=== PATIENT | male | born 1950 | race Caucasian/White ===

== ENCOUNTER 2017-03-06 10:13 | Inpatient (IN) | payer OTHER ==
[~2017-03-06] VITALS: Ht 182.9 cm; Wt 109.8 kg
[2017-03-06 10:49] LABS: ABSOLUTE BASOPHIL COUNT 0 /CUMM (0.0-0.2); ABSOLUTE EOSINOPHIL COUNT 0.1 /CUMM (0.0-0.7); ABSOLUTE GRANULOCYTE CT 6.7 /CUMM (1.4-6.5); ABSOLUTE LYMPH COUNT 2.3 /CUMM (1.2-3.4); ABSOLUTE MONOCYTE COUNT 0.8 /CUMM (0.10-0.60); BASOPHIL % 0.5 % (0.0-2.0); GRANULOCYTE % 67.3 % (42.2-75.2); HEMATOCRIT 43.5 % (42-52); MEAN CORPUSCULAR HGB 28.6 PG (27.0-31.0); MEAN CORPUSCULAR HGB CONC 34.1 G/DL (33.0-37.0); MEAN PLATELET VOLUME 8.5 FL (7.4-10.4); PLATELET COUNT 196 /CUMM (130-400); RBC DISTRIBUTION WIDTH 12.7 % (11.5-14.5); RED BLOOD CELL CT 5.17 /CUMM (4.70-6.10); WHITE BLOOD CELL COUNT 9.9 /CUMM (4.8-10.8)
--- NOTE | 2017-03-06 11:38 | ED CARDIAC/CP/PALPITATIONS ---
History of Present Illness General Chief Complaint: General Adult Stated Complaint: ERICA S/P ?MED REACTION Source: patient, family, old records Exam Limitations: no limitations Vital Signs & Intake/Output Vital Signs & Intake/Output Vital Signs Date Time Temp Pulse Resp B/P Pulse O2 O2 Flow FiO2 Ox Delivery Rate 03/06 1315 96.6 30 16 134/63 96 Room Air 03/06 1305 97.4 29 18 125/59 97 Room Air 03/06 1107 33 16 129/58 94 Room Air 03/06 1040 97 03/06 1032 96.4 03/06 1029 39 20 180/85 96 Room Air Allergies Coded Allergies: No Known Allergies (03/06/17) Triage Note: PT C/O DIZZINESS AND LOW HEART RATE X 3 DAYS. STATES HEART RATE HAS BEEN LOW ON AND OFF SINCE STARTING ON TERAZOSIN 1 YEAR AGO. PT DENIES CP/SOB. STATES A LITTLE OUT OF BREATH LAST NIGHT WHEN TRYING TO SLEEP Triage Nurses Notes Reviewed? yes Onset: 1-2 days Duration: day(s):, constant, continues in ED Timing: recent history Quality/Severity: moderate Radiation: no radiation Activities at Onset: activity Prior Chest Pain/Card Workup: no prior cardiac workup Modifying Factors: Improves With: rest. Worsens With: movement. Nitro Today/Relief: no nitro taken today Aspirin Today: no aspirin today Associated Symptoms: dizziness, fatigue, shortness of breath, weakness HPI: 1-2 days prior to admission patient complains of palpitations with slow heart rate weakness dizziness dyspnea on exertion waking with shortness of breath. He denies fever chills nausea vomiting diarrhea abdominal pain chest pain headache dysuria rash bleeding. Past History Travel History Traveled to [place] past 21 day No Medical History Any Pertinent Medical History? see below for history Cardiovascular: hypertension Surgical History Surgical History: non-contributory Psychosocial History What is your primary language Icelandic Tobacco Use: Never used ETOH Use: occasional use Illicit Drug Use: denies illicit drug use Family History Hx Contributory? No Review of Systems Review of Systems Constitutional: Reports: see HPI, weakness. EENTM: Reports: no symptoms. Respiratory: Reports: see HPI, short of breath. Cardiovascular: Reports: no symptoms, palpitations. GI: Reports: no symptoms. Genitourinary: Reports: no symptoms. Musculoskeletal: Reports: no symptoms. Skin: Reports: no symptoms. Neurological/Psychological: Reports: no symptoms. Hematologic/Endocrine: Reports: no symptoms. Immunologic/Allergic: Reports: no symptoms. All Other Systems: Reviewed and Negative Physical Exam Physical Exam General Appearance: well developed/nourished, alert, awake, anxious, moderate distress, obese Head: atraumatic, normal appearance Eyes: Bilateral: normal appearance, PERRL, EOMI. Ears, Nose, Throat: normal pharynx, normal ENT inspection Neck: normal inspection, supple, full range of motion, no midline tenderness Respiratory: normal breath sounds, chest non-tender, no respiratory distress, quiet respiration, lungs clear Cardiovascular: regular rate/rhythm, bradycardia, norml femoral pulses equa Peripheral Pulses: 4+ carotid (R), 4+ carotid (L) Gastrointestinal: normal bowel sounds, soft, non-tender, no organomegaly Back: normal inspection, normal range of motion Extremities: normal inspection, normal capillary refill, normal range of motion, no edema Neurologic/Psych: no motor/sensory deficits, awake, alert, oriented x 3, normal gait, normal mood/affect, manager lpn II-XII nml as tested Reflexes: 2+: bicep (R), bicep (L). Skin: intact, normal color, warm/dry Lymphatic: no anterior cervical yessenia Core Measures ACS in differential dx? Yes Severe Sepsis Present: No Septic Shock Present: No Progress Differential Diagnosis: AMI, atrial fibrillation, pulmonary embolism Plan of Care: Orders Procedure Date/time Status Patient Data 03/06 1448 Active Admit to inpatient 03/06 1439 Active CASE MANAGEMENT CONSULT 03/06 1352 Active Add-on Test (ER Only) 03/06 1156 Active EKG 03/06 1142 Active TSH REFLEX 03/06 1037 Active FREE T4 03/06 1037 Active TROPONIN LEVEL 03/06 1033 Active MAGNESIUM 03/06 1033 Active LYME TITRE 03/06 1033 Active COMPREHENSIVE METABOLIC PANEL 03/06 1033 Active CBC WITHOUT DIFFERENTIAL 03/06 1033 Complete EKG 03/06 1015 Active Laboratory Tests 03/06/17 1037: Anion Gap 10, Estimated GFR > 60, BUN/Creatinine Ratio 25.5 H, Glucose 114 H, Calcium 9.7, Magnesium 1.7, Total Bilirubin 0.7, AST 29, ALT 51, Alkaline Phosphatase 54, Troponin I 0.03, Total Protein 6.3, Albumin 4.2, Globulin 2.1, Albumin/Globulin Ratio 2.0, Free T4 Pending, TSH &T3 &Free T4 Intrp 4.350 H, CBC w Diff NO MAN DIFF REQ, RBC 5.17, MCV 84.0, MCH 28.6, RDW 12.7, MPV 8.5, Gran % 67.3, Lymphocytes % 22.8, Monocytes % 8.4, Eosinophils % 1.0, Basophils % 0.5, Absolute Granulocytes 6.7 H, Absolute Lymphocytes 2.3, Absolute Monocytes 0.8 H, Absolute Eosinophils 0.1, Absolute Basophils 0, PUBS MCHC 34.1 03/06/17 1033: Lyme Disease Antibody Pending Diagnostic Imaging: Viewed by Me: CT Scan. Discussed w/RAD: CT Scan. Radiology Impression: There is no evidence of acute pulmonary embolism. There is a spiculated nodule at the apex of the right lung that measures approximately 0.7 cm and maximal transaxial dimension. Correlation with prior imaging is recommended if available. Otherwise a dedicated CT scan of the chest should be obtained at 3 months to evaluate the stability of this finding based on Fleischner Society recommendations. VTE: negative Initial ED EKG: complete heart block Repeat EKG: unchanged Rhythm Strip: complete heart block Comments: Patient resisted pacemaker placement secondary to monetary concerns. Case management involved and verified his insurance will pay for pacemaker placement. Departure Departure Disposition: STILL A PATIENT Condition: Guarded Clinical Impression Primary Impression: Complete heart block Secondary Impressions: Lung nodule Referrals: PATIENT HAS NO PRIMARY CARE DR (PCP/Family) Departure Forms: Customer Survey General Discharge Information Admission Note Spoke With: Marcie ZHONG MD Documentation of Exam: Documentation of any treatments & extenuating circumstances including Concerns Regarding Discharge (functional status, medication knowledge or non-compliance, living conditions, etc.) that warrant an admission rather than observation: ICU monitoring transcutaneous pacemaker medication adjustment pacemaker placement continuing care discharge planning Critical Care Note Critical Care Note Critical Care Time: 30-74 min (40)
--- NOTE | 2017-03-06 11:53 | CT SCAN REPORT ---
EXAMINATION: CT ANGIOGRAM OF THE CHEST WITH AND WITHOUT CONTRAST (CT PULMONARY ANGIOGRAM FOR PE) CLINICAL INFORMATION: Shortness of breath. Complete heart block. COMPARISON: No relevant prior imaging is available. TECHNIQUE: Prior to contrast administration, noncontrast localization images were obtained. Subsequently, multidetector volumetric imaging was performed from the thoracic inlet to below the diaphragms following the administration of 89 mL Optiray 320 intravenous contrast. No contrast reaction reported. Sagittal, coronal, and MIP oblique sagittal reformatted images were obtained on the CT workstation, uploaded to PACS, and reviewed. Total exam dose-length product 622.21 mGy-cm. FINDINGS: The timing of the contrast bolus injection provides adequate opacification of the pulmonary arterial vasculature. There is no central luminal filling defect to suggest the presence of an acute pulmonary embolism. Of note there is reflux of intravenous contrast into the hepatic veins. There is mild bibasilar subsegmental atelectasis. There is a small fat-containing Bochdalek hernia of the right hemidiaphragm. There is a spiculated nodule at the apex of the right upper lobe best illustrated on axial image 113 of 547 series 2 that measures approximately 0.7 cm in maximal transaxial dimension. There are a few small nonspecific calcified peribronchial and subcarinal granulomas. No pathologically enlarged mediastinal lymph nodes. The trachea and major airways are widely patent. There is no pleural effusion or pneumothorax. The heart size is normal. No pericardial effusion. The aortic arch apex is grossly unremarkable. There is a low-density ovoid nodule involving the lower pole of the right thyroid gland that measures approximately 1.9 cm in maximal transaxial dimension. The visualized portions of the thoracic outlet are otherwise unremarkable. There is no acute osseous finding. Specifically the chest wall is intact with no evidence of acute rib fracture. There are mild multilevel degenerative changes within the thoracic spine. Visualized portions of the upper abdomen reveal no abnormal finding. IMPRESSION: There is no evidence of acute pulmonary embolism. There is a spiculated nodule at the apex of the right lung that measures approximately 0.7 cm and maximal transaxial dimension. Correlation with prior imaging is recommended if available. Otherwise a dedicated CT scan of the chest should be obtained at 3 months to evaluate the stability of this finding based on Fleischner Society recommendations. VTE: negative
--- NOTE | 2017-03-06 13:05 | Cons- Cardiology ---
General Information and HPI Consulting Request Date of Consult: 03/06/17 Requested By: Hussein Gilbert M.D. Reason for Consult: Complete heart block Source of Information: patient, family Exam Limitations: no limitations History of Present Illness: The patient is a 66-year-old man with hypertension. He is on terazosin for this. He has had some dizziness noted with terazosin. However yesterday he had a couple of episodes of more severe dizziness. His relatives took his pulse and found to be very slow in the 30s and convinced him to come to the hospital today. There he was found to have complete heart block with a ventricular rate of about 30 and an atrial rate of about 90. He has interventricular conduction delay with alternating right and left bundle branch block patterns. He apparently has been told of abnormal EKG in the past which by description sounds like it might be be a bundle-branch block. The patient is not having any complaints of chest pain or shortness of breath. He did not have any indio syncopal episodes at this time. Allergies/Medications Allergies: Coded Allergies: No Known Allergies (03/06/17) Home Med List: Hydrocodone/Acetaminophen (Hydrocodon-Acetaminoph 7.5-325) 7.5 MG-325 MG TABLET 1 TAB PO TIDPRN HIP PAIN (Reported) Current Medications: Current Medications Sig/Kelsi Start time Last Medication Dose Route Stop Time Status Admin Acetaminophen 1,000 MG Q6P PRN 03/06 1700 AC IV Acetaminophen/ 1 TAB Q6P PRN 03/07 1430 AC 03/07 Hydrocodone Bitart PO 1443 Acetaminophen/ 1 TAB ONCE ONE 03/06 2330 DC 03/06 Hydrocodone Bitart PO 03/06 2331 2339 Atropine Sulfate 1 MG .STK-MED ONE 03/06 2232 DC IM 03/06 223 Cefazolin Sodium 2 GM ONCE ONE 03/07 2000 CAN N/A 1 UNIT IV 03/07 2029 Cefazolin Sodium 2 GM Q6H 03/07 1400 AC 03/07 N/A 1 UNIT IV 03/07 2029 1348 Diclofenac Sodium 1 BORIS 4 TIMES/DAY PRN 03/06 1700 AC TOP Fentanyl Citrate 100 MCG .STK-MED ONE 03/07 0745 DC IM 03/07 0746 Midazolam HCl 2 MG .STK-MED ONE 03/07 745 DC IM 03/07 0746 Morphine Sulfate 1 MG Q8P PRN 03/06 1715 DC 03/07 IV 1242 Review of Systems Review of Systems: He has chronic pain in his right leg and knee from an old injury which limits his activity. Past History Travel History Traveled to [place] past 21 day No Medical History Cardiovascular: hypertension Surgical History Surgical History: none Psychosocial History ETOH Use: occasional use Illicit Drug Use: denies illicit drug use Exam & Diagnostic Data Vital Signs and I&O Vital Signs Date Time Temp Pulse Resp B/P Pulse O2 O2 Flow FiO2 Ox Delivery Rate 03/06 1107 33 16 129/58 94 Room Air 03/06 1040 97 03/06 1032 96.4 03/06 1029 39 20 180/85 96 Room Air Intake & Output 03/06 1600 03/06 0800 03/06 0000 03/05 1600 03/05 0000 Intake Total 0 Output Total Balance 0 Intake, Oral 0 Patient 242 lb Weight Physical Exam: The patient is a well-developed mildly obese middle aged white male in no acute distress HEENT exam is normal Chest is clear Heart reveals soft heart sounds and marked bradycardia. There are no murmurs Abdomen is benign Extremities reveal good pulses and no edema Labs/Ruperto Results: Laboratory Tests 03/06 03/06 1037 1033 Chemistry Sodium (137 - 145 mmol/L) 137 Potassium (3.5 - 5.1 mmol/L) 4.6 Chloride (98 - 107 mmol/L) 105 Carbon Dioxide (22 - 30 mmol/L) 23 Anion Gap (5 - 16) 10 BUN (9 - 20 mg/dL) 28 H Creatinine (0.7 - 1.2 mg/dL) 1.1 Estimated GFR (>60 ml/min) > 60 BUN/Creatinine Ratio (7 - 25 %) 25.5 H Glucose (65 - 99 mg/dL) 114 H Calcium (8.4 - 10.2 mg/dL) 9.7 Magnesium (1.6 - 2.3 mg/dL) 1.7 Total Bilirubin (0.2 - 1.3 mg/dL) 0.7 AST (17 - 59 U/L) 29 ALT (21 - 72 U/L) 51 Alkaline Phosphatase (< 127 U/L) 54 Troponin I (<0.11 ng/ml) 0.03 Total Protein (6.3 - 8.2 g/dL) 6.3 Albumin (3.5 - 5.0 g/dL) 4.2 Globulin (1.9 - 4.2 gm/dL) 2.1 Albumin/Globulin Ratio (1.1 - 2.2 %) 2.0 TSH &T3 &Free T4 Intrp (0.27 - 4.20 uIU/mL) Pending Hematology CBC w Diff NO MAN DIFF REQ WBC (4.8 - 10.8 /CUMM) 9.9 RBC (4.70 - 6.10 /CUMM) 5.17 Hgb (14.0 - 18.0 G/DL) 14.8 Hct (42 - 52 %) 43.5 MCV (80.0 - 94.0 FL) 84.0 MCH (27.0 - 31.0 PG) 28.6 RDW (11.5 - 14.5 %) 12.7 Plt Count (130 - 400 /CUMM) 196 MPV (7.4 - 10.4 FL) 8.5 Gran % (42.2 - 75.2 %) 67.3 Lymphocytes % (20.5 - 51.1 %) 22.8 Monocytes % (1.7 - 9.3 %) 8.4 Eosinophils % (0 - 5 %) 1.0 Basophils % (0.0 - 2.0 %) 0.5 Absolute Granulocytes (1.4 - 6.5 /CUMM) 6.7 H Absolute Lymphocytes (1.2 - 3.4 /CUMM) 2.3 Absolute Monocytes (0.10 - 0.60 /CUMM) 0.8 H Absolute Eosinophils (0.0 - 0.7 /CUMM) 0.1 Absolute Basophils (0.0 - 0.2 /CUMM) 0 PUBS MCHC (33.0 - 37.0 G/DL) 34.1 Serology Lyme Disease Antibody Pending Diagnostic Data EKG Results Initial EKG shows sinus rhythm a rate of about 90 with complete heart block. There is a ventricular escape rhythm at a rate of 30 with right bundle branch block and left axis deviation pattern. Repeat EKG at 11:46 AM shows sinus rhythm with complete heart block and now a left bundle branch block pattern. The ventricular rate is 32. Other Results IMPRESSION: There is no evidence of acute pulmonary embolism. There is a spiculated nodule at the apex of the right lung that measures approximately 0.7 cm and maximal transaxial dimension. Correlation with prior imaging is recommended if available. Otherwise a dedicated CT scan of the chest should be obtained at 3 months to evaluate the stability of this finding based on Fleischner Society recommendations. VTE: negative DICTATED BY: DONNY APARICIO MD DATE/TIME DICTATED:03/06/171140 ROSIN BARREL FILLER:HARRISON DATE/TIME TRANSCRIBED:03/06/171140 Assessment/Plan Assessment/Plan This patient is a 66-year-old man presents with mildly symptomatic complete heart block. His heart rate is in the low30s. He has alternating bundle type ventricular escape rhythm. Most likely this is degeneration of the conduction system. It sounds like he might have had a previous bundle branch block pattern just from his history, although we don't have any documentation at this time. The patient will require pacemaker on a semiurgent basis. We will plan this in the near future, hopefully tomorrow morning depending on scheduling. The patient is agreeable pending clearance from his insurance company etc. Unfortunately we will not be able to clear him to travel to have this done back in his home [facility] because of his clinical condition. He should be able to travel a couple of days after the procedure. Consult Acknowledgment - Thank you for your consult request.
--- NOTE | 2017-03-06 15:29 | History & Physical ---
See Addendum TYRONE SRIVASTAVA,ZANA 03/06/17 1529: General Information and HPI MD Statement: I have seen and personally examined JOSE EDUARDO ALONZO and documented this H&P. The patient is a 66 year old M who presented with a patient stated chief complaint of [dizziness]. Source of Information: patient, family Exam Limitations: no limitations History of Present Illness: Patient is a 66 year old gentleman with PMH of hypertension, chronic back pain ( due to herniated disc), chronic right knee pain (with meniscal tear), came to the ED due to dizziness and after he was found to have heart rate in 30s (by her sister who is a retired nurse). Patient is visiting his sister from the [facility]. He reports that his symptoms started about 2 days ago with dizziness that occurs when he sits up from supine to upright position or when he stands up. Denies loss of consciousness, denies palpitation or chest pain, denies headache. Patient reports SOB when lying flat. He mentions that he has been experiencing dizziness since about a year ago when he was started on terazosin for high blood pressure. Patient reports a recent seven-day course of amoxicillin for a dental abscess which was given by his dentist in anticipation of tooth extraction. He also mentioned that he is about to get an MRI for his back and requests that the pacemaker that is palnned to be placed be MRI compatible He denies fever, chills, but reports his temperature today is more than his usual, states that it is usually 95.6-96.8 but was 97.4 today. denies abdominal pain, changes in has not had any sick contacts, no travels outside the [place] for several years Allergies/Medications Allergies: Coded Allergies: No Known Allergies (03/06/17) Home Med list Hydrocodone/Acetaminophen (Hydrocodon-Acetaminoph 7.5-325) 7.5 MG-325 MG TABLET 1 TAB PO TIDPRN HIP PAIN (Reported) Past History Travel History Traveled to [place] past 21 day No Medical History Cardiovascular: hypertension Musculoskeletal: chronic back pain, mensical tear, chronic knee pain Surgical History Surgical History: non-contributory Past Family/Social History Family History Relations & Conditions if any SISTER Relation not specified for: FH: diabetes mellitus Psychosocial History Smoking Status: Former Smoker (no smoking since ) ETOH Use: occasional use Illicit Drug Use: denies illicit drug use Functional Ability Ambulation: independent Review of Systems Review of Systems Constitutional: Denies: chills, fever, weakness. EENTM: Reports: no symptoms. Cardiovascular: Denies: chest pain, palpitations, peripheral edema, syncope. Respiratory: Reports: short of breath (when lying flat). Denies: cough, orthopnea, sputum production. GI: Reports: no symptoms. Genitourinary: Reports: no symptoms. Musculoskeletal: Reports: back pain (lower back), joint pain (knee pain). Skin: Reports: lumps (back of neck, chronic, stable). Neurological/Psychological: Reports: no symptoms. Hematologic/Endocrine: Reports: no symptoms. Immunologic/Allergic: Reports: no symptoms. Exam & Diagnostic Data Last 24 Hrs of Vital Signs/I&O Vital Signs Date Time Temp Pulse Resp B/P Pulse O2 O2 Flow FiO2 Ox Delivery Rate 03/07 0400 97 Room Air 03/07 0000 95 Room Air 03/07 0000 97.5 30 20 110/70 95 Room Air 03/06 1900 96.7 34 16 149/90 97 Room Air 03/06 1624 96.9 33 18 149/70 96 Room Air 03/06 1315 96.6 30 16 134/63 96 Room Air 03/06 1305 97.4 29 18 125/59 97 Room Air 03/06 1107 33 16 129/58 94 Room Air 03/06 1040 97 03/06 1032 96.4 03/06 1029 39 20 180/85 96 Room Air Intake & Output 03/07 1600 03/07 0800 03/07 0000 Intake Total 120 Output Total 600 500 Balance -600 -380 Intake, Oral 120 Output, Urine 600 500 Patient 109.769 kg Weight Physical Exam General Appearance Alert, Oriented X3, Cooperative, No Acute Distress Skin there is a soft mass like lesion, 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 moist/pink, pupil round and reactive to light Neck Supple, No JVD Cardiovascular Normal S1, Normal S2, No Murmurs, bradycardic, irregular Lungs Clear to Auscultation, Normal Air Movement Abdomen Soft, No Tenderness Diagnostic Data EKG Results Initial EKG shows sinus rhythm a rate of about 90 with complete heart block. There is a ventricular escape rhythm at a rate of 30 with right bundle branch block and left axis deviation pattern. Repeat EKG at 11:46 AM shows sinus rhythm with complete heart block and now a left bundle branch block pattern. The ventricular rate is 32. Other Results IMPRESSION: There is no evidence of acute pulmonary embolism. There is a spiculated nodule at the apex of the right lung that measures approximately 0.7 cm and maximal transaxial dimension. Correlation with prior imaging is recommended if available. Otherwise a dedicated CT scan of the chest should be obtained at 3 months to evaluate the stability of this finding based on Fleischner Society recommendations. VTE: negative DICTATED BY: DONNY APARICIO MD DATE/TIME DICTATED:03/06/171140 PUBLIC RECORDS OFFICER:HARRISON DATE/TIME TRANSCRIBED:03/06/171140 Assessment/Plan Assessment: Patient is a 66-year-old gentleman with PMH of hypertension, chronic knee pain, chronic back pain who came to the ED after 2 days of feeling dizzy. He was found to have bradycardia, EKG in the ED revealed complete heart block. Problem list and plan: Symptomatic Bradycardia and complete heart block First dizziness when moving from supine to upright and standing up. Denies headache, chest pain, palpitation, shortness of breath. Possibility etiologies include: myocardial ischemia involving the conduction system (acute or chronic), cardiomyopathy (amyloidosis, sarcoidosis), myocarditis (lyme disease, chagas disease), endocarditis with abscess formation, hyperkalemia, medication-related (AV myron blocking medications) EKG: Rate of 32, ND 233, 3rd degree AV block Troponin negativex2 CTA: The heart size is normal. No pericardial effusion. * Admitted to the ICU * atropine and defibrillator at bedside * Cardiology consult with Dr. Tan has been obtained, as per recommendations patient will be scheduled for pacemaker placement as early in the morning tomorrow. History of hypertension Patient takes terazosin, currently on hold due to the possibility that it may have caused the Chronic back pain and knee pain Patient takes hydrocodone/acetaminophen home which can not be given due to risk of worsening bradycardia * Pain management with acetaminophen, ketorolac and morphine Accidental finding of a lung nodule Asymptomatic. CTA was done in the ED and showed a spiculated nodule at the apex of the right lung that measures approximately 0.7 cm and maximal transaxial dimension. CT scan of the chest should be obtained at 3 months to evaluate the stability of this finding. Diet NPO DVT px ALPS, in anticipation for sx tomorrow FULL CODE As Ranked By This Provider Problem List: 1. Complete heart block 2. HTN (hypertension) 3. Lung nodule Core Measures/Miscellaneous Acute Coronary Syndrome ACS Diagnosis: No Cerebrovascular Accident CVA/TIA Diagnosis: No Congestive Heart Failure CHF Diagnosis: No Venous Thromboembolism VTE Risk Factors: Acute medical illness, Age > 40 No [facility] VTE prophylaxis d/t: No contraindications No VTE Pharm Prophylaxis d/t: No contraindications (pacemaker placement tomorrow ), Surgical contraindication VTE Diagnosis: No VTE Type: NONE VTE Confirmed by (Test): NONE Severe Sepsis Severe Sepsis Present: No Septic Shock Septic Shock Present: No Miscellaneous Documentation Attending Case Discussed With: Marcie ZHONG MD Primary Care Physician: PATIENT HAS NO PRIMARY CARE DR Patient sees these Specialists none Level of Patient Care: Critical Care (CRI) FABIEN MARTINEZ 03/06/17 1612: Resident Review Statement Resident Statement: examined this patient, discussed with marketing intern, agreed with marketing intern Other Findings: Patient is a 66-year-old gentleman with past medical history significant for chronic back pain due to L3 radiculopathy, history of hypertension, BPH presented to the ED for the evaluation of persistent dizziness with bradycardia for the last 1 day. Patient mentioned that he has been feeling dizzy since yesterday, more on standing from a sitting position or sitting from a lying position. Associated with shortness of breath without any chest discomfort or palpitations. Denied any lightheadedness or loss of consciousness numbness and tingling. Her sister who was a retired nurse checked his vitals and and was found to be bradycardic heart rate was in 30s, patient could not sleep overnight and came to the ER in the morning for further evaluation. Patient reported that he has been taking prazosin for his blood pressure and BPH for almost a year ago, and had noticed dizzy episodes with the medication. About 2-1/2 months ago he was also started on Niacin by his primary care physician. Patient had last physical exam in 2016 EKG done at that time was abnorma(possible conduction system abnormalities patient did not know the exact details ) Patient denied any recent infections fever or chills/rash. He recently completed a course of amoxicillin for total of 7 days given by his dentist before dental extraction. In the ED, EKG done in the ED sinus rhythm showed complete heart block with a heart rate in 30s. Patient was given 1 time dose of IV atropine 1 mg. Vitals on admission temperature 96.7, pulse 39, respiratory rate 20, blood pressure 180/85 on room air General Appearance: Alert, No Acute Distress Skin: Grossly normal HEENT: PEERLA Neck: Supple, No JVD Cardiovascular: Low pitched/soft heart sounds with significant bradycardia pulse in 30s. Lungs: Clear to Auscultation, Normal Air Movement Abdomen: Normal Bowel Sounds, Soft, No Tenderness Neurological: Normal Speech, Strength at 5/5 X4 Ext, Cranial Nerves 3-12 NL, Reflexes 2+ Extremities: No Clubbing, No Cyanosis, No Edema Vascular: Normal Pulses. Pertinent labs on admission: WBC count normal H&H stable 14.8/43, normal BMP, TSH 4.3. CTA chest was negative for pulmonary embolism EKG done in the ED sinus rhythm showed complete heart block with a heart rate in 30s. Assessment : This is a 66-year-old gentleman with past medical history significant for chronic back pain due to L3 radiculopathy, history of hypertension, BPH presented to the ED for the evaluation of persistent dizziness with bradycardia for the last 1 day, has been admitted for the evaluation for complete heart block. Plan: 1.Dizziness and persistent bradycardia heart rate in 30s with a complete heart block( Ideologies include conduction system abnormality-ischemic, cardiomyopathy, myocarditis-Lyme's disease?,endocarditis less likely, AV myron blocking medications: * Patient has been admitted to critical care unit for further evaluation. * Patient has been given 1 time dose of atropine in the ER , will keep atropine at the bedside with the pacer pads on . * Cardiology consult with Dr. Tan has been obtained, as per recommendations patient will be scheduled for pacemaker placement as early in the morning tomorrow. * Will do echocardiogram and do another set of troponin and EKG to rule out any underlying ACS. * Lyme's titers pending. * Hold prazosin and niacin. * Continuous telemetry monitoring * Watch for any hemodynamically stability. 2.DVT prophylaxis Alps:(hold any anticoagulation pending pacemaker placement tomorrow). 3. Mild to moderate pain controlled with IV Tylenol, severe pain controlled with IV morphine 4. Heart healthy diet. We'll keep the patient nothing by mouth from midnight in anticipation for pacemaker placement 5. Patient is full code. Case discussed with Dr. Zhong
[2017-03-06] MEDS ORDERED: HYDROCODON-ACE1 EAC3 PO (19:15)
--- NOTE | 2017-03-06 20:39 | Cons- Cardiology ---
General Information and HPI Consulting Request Date of Consult: 03/06/17 Requested By: Marcie ZHONG MD Reason for Consult: Dyspnea with complete heart block Source of Information: patient, family History of Present Illness: 66 year old male with no known cardiac history who [facility]. History of HTN on Terazocin. Patient comes to the ER today with worsening positional dizziness without LOC and dyspnea. Per the patient's family he also was waking at night "gasping" for air. In the ER, the patient is noted to be in complete heart block with an atrial rate of 90 and a ventricular rate of about 30. He was also noted to have varying escape rhythm with brief episodes of narrow complex rhythm but also episodes of alternating RBBB and LBBB. Discussed at length with the patient. I believe this is most consistent with degenerative conduction disease. THe patient is concerned that it is related to his medicaitions but this is decidedly unlikely. He denies any other cardiac symptoms Allergies/Medications Allergies: Coded Allergies: No Known Allergies (03/06/17) Home Med List: Hydrocodone/Acetaminophen (Hydrocodon-Acetaminoph 7.5-325) 7.5 MG-325 MG TABLET 1 TAB PO TIDPRN HIP PAIN (Reported) Current Medications: Current Medications Sig/Kelsi Start time Last Medication Dose Route Stop Time Status Admin Acetaminophen 1,000 MG Q6P PRN 03/06 1700 AC IV Atropine Sulfate 1 MG ONCE ONE 03/06 1045 DC 03/06 IV 03/06 1046 1051 Diclofenac Sodium 1 BORIS 4 TIMES/DAY PRN 03/06 1700 AC TOP Enoxaparin Sodium 40 MG DAILY 03/07 1000 CAN SC Ketorolac 30 MG Q6P PRN 03/06 1700 DC Tromethamine IV 03/11 1659 Morphine Sulfate 1 MG Q8P PRN 03/06 1715 AC IV Past History Travel History Traveled to [place] past 21 day No Medical History Cardiovascular: hypertension Surgical History Surgical History: non-contributory Psychosocial History ETOH Use: occasional use Illicit Drug Use: denies illicit drug use Exam & Diagnostic Data Vital Signs and I&O Vital Signs Date Time Temp Pulse Resp B/P Pulse O2 O2 Flow FiO2 Ox Delivery Rate 03/06 1900 96.7 34 16 149/90 97 Room Air 03/06 1624 96.9 33 18 149/70 96 Room Air 03/06 1315 96.6 30 16 134/63 96 Room Air 03/06 1305 97.4 29 18 125/59 97 Room Air 03/06 1107 33 16 129/58 94 Room Air 03/06 1040 97 03/06 1032 96.4 03/06 1029 39 20 180/85 96 Room Air Intake & Output 03/06 1600 03/06 0800 03/06 0000 03/05 1600 03/05 0800 03/05 0000 Intake Total 0 Output Total Balance 0 Intake, Oral 0 Patient 242 lb Weight Physical Exam: General: Alert, No Acute Distress Skin: Grossly normal HEENT: Normal Neck: Supple, SLight JVP elevation with huang A waves Cardiovascular: Low pitched/soft heart sounds with significant bradycardia pulse in 30s. 1/6 systolic murmur Lungs: Clear to Auscultation, Normal Air Movement Abdomen: Normal Bowel Sounds, Soft, No Tenderness Neurological: Normal Speech, Strength at 5/5 X4 Ext, Cranial Nerves 3-12 NL, Reflexes 2+ Extremities: No Clubbing, No Cyanosis, No Edema Vascular: Normal Pulses bilaterally Labs/Ruperto Results: Laboratory Tests 03/06 03/06 03/06 1657 1037 1033 Chemistry Sodium (137 - 145 mmol/L) 137 Potassium (3.5 - 5.1 mmol/L) 4.6 Chloride (98 - 107 mmol/L) 105 Carbon Dioxide (22 - 30 mmol/L) 23 Anion Gap (5 - 16) 10 BUN (9 - 20 mg/dL) 28 H Creatinine (0.7 - 1.2 mg/dL) 1.1 Estimated GFR (>60 ml/min) > 60 BUN/Creatinine Ratio (7 - 25 %) 25.5 H Glucose (65 - 99 mg/dL) 114 H Calcium (8.4 - 10.2 mg/dL) 9.7 Magnesium (1.6 - 2.3 mg/dL) 1.7 Total Bilirubin (0.2 - 1.3 mg/dL) 0.7 AST (17 - 59 U/L) 29 ALT (21 - 72 U/L) 51 Alkaline Phosphatase (< 127 U/L) 54 Troponin I (<0.11 ng/ml) 0.03 0.03 Total Protein (6.3 - 8.2 g/dL) 6.3 Albumin (3.5 - 5.0 g/dL) 4.2 Globulin (1.9 - 4.2 gm/dL) 2.1 Albumin/Globulin Ratio (1.1 - 2.2 %) 2.0 Free T4 (0.78 - 2.44 ng/dL) 1.18 Total T3 (0.97 - 1.69 ng/mL) 1.43 TSH &T3 &Free T4 Intrp (0.27 - 4.20 uIU/mL) 4.350 H Hematology CBC w Diff NO MAN DIFF REQ WBC (4.8 - 10.8 /CUMM) 9.9 RBC (4.70 - 6.10 /CUMM) 5.17 Hgb (14.0 - 18.0 G/DL) 14.8 Hct (42 - 52 %) 43.5 MCV (80.0 - 94.0 FL) 84.0 MCH (27.0 - 31.0 PG) 28.6 RDW (11.5 - 14.5 %) 12.7 Plt Count (130 - 400 /CUMM) 196 MPV (7.4 - 10.4 FL) 8.5 Gran % (42.2 - 75.2 %) 67.3 Lymphocytes % (20.5 - 51.1 %) 22.8 Monocytes % (1.7 - 9.3 %) 8.4 Eosinophils % (0 - 5 %) 1.0 Basophils % (0.0 - 2.0 %) 0.5 Absolute Granulocytes (1.4 - 6.5 /CUMM) 6.7 H Absolute Lymphocytes (1.2 - 3.4 /CUMM) 2.3 Absolute Monocytes (0.10 - 0.60 /CUMM) 0.8 H Absolute Eosinophils (0.0 - 0.7 /CUMM) 0.1 Absolute Basophils (0.0 - 0.2 /CUMM) 0 PUBS MCHC (33.0 - 37.0 G/DL) 34.1 Serology Lyme Disease Antibody Pending Diagnostic Data EKG Results Complete heart block Assessment/Plan Assessment/Plan Assessment: 1. Complete heart block - Most likely related to underlying conduction disease. Not likely related to medications. Lyme disease also unlikely but titres pending. 2. Dyspnea, etc likely related to CHB 3. HTN 4. Chronic Pain Recommendations: - Admit to ICU for monitoring. - Atropine at the bedside and external pacemaker in place. - Full labs including TSH, Troponins, Lyme, etc - Echocardiogram to rule out structural disease. - Dr. Tan consulted for placement of permanent pacemaker; scheduled for 7: 30 AM tomorrow. - NPO tonite after midnite. - Pain control - The patient is scheduled for multiple upcoming MRIs. An MRI safe PPM should be implanted in his case. Consult Acknowledgment - Thank you for your consult request.
[2017-03-07] VITALS: BP 110/70
--- NOTE | 2017-03-07 07:29 | PN- Resident CRCU ---
Subjective HPI/CRCU Issues: 1- bradycardia and dizziness with 3rd degree AVB on EKG, due for pacemaker placement this am 2- History of HTN on Terazosin 24 Hour Events: Laboratory Tests 03/07 03/06 03/06 0430 1657 1037 Chemistry Sodium (137 - 145 mmol/L) 138 137 Potassium (3.5 - 5.1 mmol/L) 4.7 4.6 Chloride (98 - 107 mmol/L) 107 105 Carbon Dioxide (22 - 30 mmol/L) 21 L 23 Anion Gap (5 - 16) 11 10 BUN (9 - 20 mg/dL) 25 H 28 H Creatinine (0.7 - 1.2 mg/dL) 0.9 1.1 Estimated GFR (>60 ml/min) > 60 > 60 BUN/Creatinine Ratio (7 - 25 %) 25.5 H Glucose (65 - 99 mg/dL) 104 H 114 H Calcium (8.4 - 10.2 mg/dL) 9.2 9.7 Phosphorus (2.5 - 4.5 mg/dL) 3.0 Magnesium (1.6 - 2.3 mg/dL) 1.8 1.7 Total Bilirubin (0.2 - 1.3 mg/dL) 0.8 0.7 AST (17 - 59 U/L) 39 29 ALT (21 - 72 U/L) 64 51 Alkaline Phosphatase (< 127 U/L) 54 Troponin I (<0.11 ng/ml) 0.03 0.03 Total Protein (6.3 - 8.2 g/dL) 6.3 Albumin (3.5 - 5.0 g/dL) 4.1 4.2 Globulin (1.9 - 4.2 gm/dL) 2.1 Albumin/Globulin Ratio (1.1 - 2.2 %) 2.0 Free T4 (0.78 - 2.44 ng/dL) 1.18 Total T3 (0.97 - 1.69 ng/mL) 1.43 TSH &T3 &Free T4 Intrp (0.27 - 4.20 uIU/mL) 4.350 H Hematology CBC w Diff NO MAN DIFF REQ WBC (4.8 - 10.8 /CUMM) 9.9 RBC (4.70 - 6.10 /CUMM) 5.17 Hgb (14.0 - 18.0 G/DL) 14.8 Hct (42 - 52 %) 43.5 MCV (80.0 - 94.0 FL) 84.0 MCH (27.0 - 31.0 PG) 28.6 RDW (11.5 - 14.5 %) 12.7 Plt Count (130 - 400 /CUMM) 196 MPV (7.4 - 10.4 FL) 8.5 Gran % (42.2 - 75.2 %) 67.3 Lymphocytes % (20.5 - 51.1 %) 22.8 Monocytes % (1.7 - 9.3 %) 8.4 Eosinophils % (0 - 5 %) 1.0 Basophils % (0.0 - 2.0 %) 0.5 Absolute Granulocytes (1.4 - 6.5 /CUMM) 6.7 H Absolute Lymphocytes (1.2 - 3.4 /CUMM) 2.3 Absolute Monocytes (0.10 - 0.60 /CUMM) 0.8 H Absolute Eosinophils (0.0 - 0.7 /CUMM) 0.1 Absolute Basophils (0.0 - 0.2 /CUMM) 0 PUBS MCHC (33.0 - 37.0 G/DL) 34.1 03/06 1033 Serology Lyme Disease Antibody Pending Vital Signs Date Time Temp Pulse Resp B/P Pulse O2 O2 Flow FiO2 Ox Delivery Rate 03/07 0400 97 Room Air 03/07 0000 95 Room Air 03/07 0000 97.5 30 20 110/70 95 Room Air 03/06 1900 96.7 34 16 149/90 97 Room Air 03/06 1624 96.9 33 18 149/70 96 Room Air 03/06 1315 96.6 30 16 134/63 96 Room Air 03/06 1305 97.4 29 18 125/59 97 Room Air 03/06 1107 33 16 129/58 94 Room Air 03/06 1040 97 03/06 1032 96.4 03/06 1029 39 20 180/85 96 Room Air Intake & Output 03/07 1600 03/07 0800 03/07 0000 Intake Total 120 Output Total 600 500 Balance -600 -380 Intake, Oral 120 Output, Urine 600 500 Patient 109.769 kg Weight Objective Vital Signs & I&O Last 8 Hrs of Vitals and I&O: HR 28-32, complete heart block no overnight events Exam General Appearance: well developed/nourished, no apparent distress, alert, awake , comfortable, obese Head: atraumatic, normal appearance Neck: normal inspection, supple, full range of motion, soft tissue mass present from the past on the lower part and back of the neck Respiratory: normal breath sounds, chest non-tender, no respiratory distress, quiet respiration, lungs clear Cardiovascular: edema (irregular, bradycardic) Gastrointestinal: normal bowel sounds, soft, non-tender Extremities: normal inspection, normal capillary refill Cranial Nerves: normal hearing, normal speech, PERRL Skin: intact, normal color Back: normal inspection, decreased range of motion Current Medications: Current Medications Sig/Kelsi Start time Last Medication Dose Route Stop Time Status Admin Acetaminophen 1,000 MG Q6P PRN 03/06 1700 AC IV Acetaminophen/ 1 TAB Q6P PRN 03/07 1430 AC 03/07 Hydrocodone Bitart PO 1843 Acetaminophen/ 1 TAB ONCE ONE 03/06 2330 DC 03/06 Hydrocodone Bitart PO 03/06 2331 2339 Atropine Sulfate 1 MG .STK-MED ONE 03/06 2232 DC IM 03/06 2233 Cefazolin Sodium 2 GM ONCE ONE 03/07 2000 CAN N/A 1 UNIT IV 03/07 2029 Cefazolin Sodium 2 GM Q6H 03/07 1400 AC 03/07 N/A 1 UNIT IV 03/07 202 1945 Diclofenac Sodium 1 BORIS 4 TIMES/DAY PRN 03/06 1700 AC TOP Fentanyl Citrate 100 MCG .STK-MED ONE 03/07 0745 DC IM 03/07 0746 Hydromorphone HCl 2 MG .STK-MED ONE 03/07 0956 DC IM 03/07 0957 Midazolam HCl 2 MG .STK-MED ONE 03/07 0745 DC IM 03/07 0746 Morphine Sulfate 1 MG Q8P PRN 03/06 1715 DC 03/07 IV 1242 Impression/Plan Impression/Problem List Impression: Patient is a 66-year-old gentleman with PMH of hypertension, chronic knee pain, chronic back pain who came to the ED after 2 days of feeling dizzy. He was found to have bradycardia, EKG in the ED revealed complete heart block. Patient is taken to the OR today for pacemaker placement. Problem list and plan: Symptomatic Bradycardia and complete heart block First dizziness when moving from supine to upright and standing up. Denies headache, chest pain, palpitation, shortness of breath. Possibility etiologies include: myocardial ischemia involving the conduction system (acute or chronic), cardiomyopathy (amyloidosis, sarcoidosis), myocarditis (lyme disease, chagas disease), endocarditis with abscess formation, hyperkalemia, medication-related (AV myron blocking medications) EKG: Rate of 32, UT 233, 3rd degree AV block Troponin negativex2 CTA: The heart size is normal. No pericardial effusion. * Admitted to the ICU * atropine and defibrillator at bedside * Cardiology consult with Dr. Tan is in place, patient will get pacemaker this am, it is going to be an MRI compatible pacemaker, he is going to get an MRI soon for his back pain) * lyme titer pending History of hypertension Patient takes terazosin, currently on hold due to the possibility that it may have caused the bradycardia Chronic back pain and knee pain Patient takes hydrocodone/acetaminophen home which can not be given due to risk of worsening bradycardia * Pain management with acetaminophen, voltaren gel and morphine Accidental finding of a lung nodule Asymptomatic. CTA was done in the ED and showed a spiculated nodule at the apex of the right lung that measures approximately 0.7 cm and maximal transaxial dimension. CT scan of the chest should be obtained at 3 months to evaluate the stability of this finding. Diet NPO DVT px ALPS, in anticipation for sx FULL CODE Problem List: 1. Complete heart block 2. Lung nodule 3. HTN (hypertension) Pain Ratin Pain Location: back pain, knee pain Tomorrow's Labs & Rationales: BEP and Mg (monitor electrolytes) Plan DVT/Prophylaxis: mechanical
[2017-03-07 08:00] VITALS: BP 134/68
--- NOTE | 2017-03-07 10:43 | RADIOLOGY REPORT ---
EXAMINATION: XR PORTABLE CHEST CLINICAL INFORMATION: Right-sided pacemaker. COMPARISON: Chest CT from 03/06/2017. TECHNIQUE: Portable AP view of the chest was obtained. FINDINGS: Cardiac silhouette is normal in size. Interval placement of a right pectoral region cardiac pacemaker with transvenous leads extending to level of the right atrium and right ventricle. No acute pulmonary consolidation, edema, pneumothorax or pleural effusion. Lungs are well expanded and relatively lucent from emphysematous disease. No acute skeletal findings. IMPRESSION: 1. No evidence of pneumothorax after placement of the cardiac pacemaker. 2. Pulmonary emphysema.
[2017-03-07 12:00] VITALS: BP 158/90
--- NOTE | 2017-03-07 12:32 | RADIOLOGY REPORT ---
EXAMINATION:\H\ \N\C-arm fluoroscopy assistance and spot radiographs over the chest. CLINICAL INFORMATION: Pacemaker insertion. COMPARISON: None TECHNIQUE: 5 spot radiographs were obtained at the time of right-sided pacemaker insertion. Fluoroscopy time: 4.3 minutes. FINDINGS: 5 spot radiographs were obtained at the time of the right-sided pacemaker placement. Sequential radiographs shows placement of dual lead pacer wires, appear in good position. IMPRESSION: C-arm fluoroscopy assistance is provided at the time of right-sided pacemaker placement. Full procedural details will be dictated by Dr. Tan.
--- NOTE | 2017-03-07 13:10 | Operative Report ---
Operative/Inv Procedure Report Surgery Date: 03/07/17 Name of Procedure: Implantation of MRI conditional dual-chamber pacemaker and atrial and ventricular leads. Pre-Operative Diagnosis: Complete heart block Post-Operative Diagnosis: Complete heart block, status post pacemaker implantation. Estimated Blood Loss: corine Surgeon/Wing Scorer: Emanuel Tan M.D., V. Anesthesia: local monitored anesthesi Implants: Medtronic Advisa pacemaker, model #A2DR01, serial number [id number] Medtronic right atrial lead, model #5076-45, serial number [id number] Medtronic right ventricular lead Model#5076-52, serial number [id number] Complications: None Operative/Procedure Note Note: The patient is a 66-year-old man who is visiting family from [facility]. He had some episodes of dizziness on the day prior to admission and came to the emergency department yesterday on March 06, 2017. There he was found to be in complete heart block with a ventricular rate of about 30-32. There is some history consistent with a pre-existing bundle-branch block, but this was unable to be confirmed. The patient was recommended a permanent pacemaker. He agreed after confirming that his insurance would cover this procedure on an emergency basis. The patient was brought to the operating suite in the fasting state. Informed consent was obtained for the procedure and anesthesia. The patient and his family were advised as to indications, procedure, and possible complications. The patient was prepped and draped in the usual manner. 2 g of Kefzol IV were given prior to the procedure. training technician out was taken and all were in agreement with the procedure, personnel, equipment and patient identification. Local anesthesia was instilled in the right subclavian area and an incision made in this area parallel to the clavicle, crossing the deltopectoral groove. An incision was made and carried down to the deltopectoral groove and a somewhat deep but good sized cephalic vein was identified and isolated between ties. Additional local anesthesia was instilled in the inferior part of the incision and an appropriate sized pocket made using sharp and blunt dissection and the pocket was stuffed with a Kefzol-soaked sponge. Next, the vein was opened and the ventricular lead was placed in the vein and was able to be passed into the central circulation and into the apex of the right ventricle under fluoroscopic control. The lead was was screwed into place using the active fixation feature of the lead. Threshold was 0.6 V, 0.5 mA. Impedance was 1136 ohms, R-wave was 6.7 mV, this were considered satisfactory for an acute implant. Next the atrial lead was able to be placed in the vein and advanced to central circulation. The lead was manipulated into the right atrial appendage and screwed into place using the active fixation feature. Threshold in the atrium was 1.0 V, current 2.2 mA, impedance 719 ohms, P waves 2.0 mV. These were considered satisfactory for an acute implant. Next the leads were tied into the vein and sewn into place using the sleeve devices around the leads with nonabsorbable suture material. Next the sponge was removed from the pocket and the pacemaker was attached to the leads, where appropriate pacing ensued. Next the pacemaker was placed in the pocket and sewn into place using a nonabsorbable suture through the suture hole of the pacemaker. Next, the wound was inspected for hemostasis and found to be dry, and the wound was closed in 3 layers of absorbable suture material including a final layer of subcuticular sutures with buried knots. The patient tolerated the procedure well. There was negligible blood loss and no complications. Sponge, needle and instrument counts were correct at the end of the procedure. Postoperative EKG and chest x-ray documented good electrical and anatomic position and function of the system. The patient was moved to the recovery room awake and alert and pacing well. Discharge Disposition: PACU
[2017-03-07 15:30] VITALS: BP 162/100
--- NOTE | 2017-03-07 18:56 | PN- Cardiology ---
Subjective Subjective: Stable post permanent pacemaker. Objective Vital Signs and I&Os Vital Signs Date Time Temp Pulse Resp B/P Pulse O2 O2 Flow FiO2 Ox Delivery Rate 03/07 1530 97.6 68 20 162/100 96 Room Air 03/07 1200 98.2 68 18 158/90 96 Room Air 03/07 0800 96 Room Air Room Air 03/07 0800 98.2 29 16 134/68 96 Room Air Room Air 03/07 0400 97 Room Air 03/07 0000 95 Room Air 03/07 0000 97.5 30 20 110/70 95 Room Air 03/06 1900 96.7 34 16 149/90 97 Room Air Intake & Output 03/07 1600 03/07 0800 03/07 0000 03/06 1600 03/06 0800 03/06 0000 Intake Total 120 0 Output Total 600 500 Balance -600 -380 0 Intake, Oral 120 0 Output, Urine 600 500 Patient 242 lb 242 lb Weight Current Medications: Current Medications Sig/Kelsi Start time Last Medication Dose Route Stop Time Status Admin Acetaminophen 1,000 MG Q6P PRN 03/06 1700 IV Acetaminophen/ 1 TAB Q6P PRN 03/07 1430 AC 03/07 Hydrocodone Bitart PO 1843 Acetaminophen/ 1 TAB ONCE ONE 03/06 2330 DC 03/06 Hydrocodone Bitart PO 03/06 2331 2339 Atropine Sulfate 1 MG .STK-MED ONE 03/06 2232 DC IM 03/06 2233 Cefazolin Sodium 2 GM ONCE ONE 03/07 2000 CAN N/A 1 UNIT IV 03/07 2029 Cefazolin Sodium 2 GM Q6H 03/07 1400 AC 03/07 N/A 1 UNIT IV 03/07 202 1348 Diclofenac Sodium 1 BORIS 4 TIMES/DAY PRN 03/06 1700 TOP Fentanyl Citrate 100 MCG .STK-MED ONE 03/07 0745 DC IM 03/07 0746 Hydromorphone HCl 2 MG .STK-MED ONE 03/07 0956 DC IM 03/07 0957 Midazolam HCl 2 MG .STK-MED ONE 03/07 0745 DC IM 03/07 0746 Morphine Sulfate 1 MG Q8P PRN 03/06 1715 DC 03/07 IV 1242 Results Last 48 Hrs of Labs/Mics: Laboratory Tests 03/07/17 0430: Anion Gap 11, Estimated GFR > 60, Glucose 104 H, Calcium 9.2, Phosphorus 3.0, Magnesium 1.8, Total Bilirubin 0.8, AST 39, ALT 64, Albumin 4.1 03/06/17 1657: Troponin I 0.03 03/06/17 1037: Anion Gap 10, Estimated GFR > 60, BUN/Creatinine Ratio 25.5 H, Glucose 114 H, Calcium 9.7, Magnesium 1.7, Total Bilirubin 0.7, AST 29, ALT 51, Alkaline Phosphatase 54, Troponin I 0.03, Total Protein 6.3, Albumin 4.2, Globulin 2.1, Albumin/Globulin Ratio 2.0, Free T4 1.18, Total T3 1.43, TSH &T3 &Free T4 Intrp 4.350 H, CBC w Diff NO MAN DIFF REQ, RBC 5.17, MCV 84.0, MCH 28.6, RDW 12.7, MPV 8.5, Gran % 67.3, Lymphocytes % 22.8, Monocytes % 8.4, Eosinophils % 1.0, Basophils % 0.5, Absolute Granulocytes 6.7 H, Absolute Lymphocytes 2.3, Absolute Monocytes 0.8 H, Absolute Eosinophils 0.1, Absolute Basophils 0, PUBS MCHC 34.1 03/06/17 1033: Lyme Disease Antibody Pending Assessment/Plan Assessment/Plan Assessment: 1. Complete heart block - Most likely related to underlying conduction disease. Not likely related to medications. Lyme disease also unlikely but titres pending. 2. Dyspnea, etc likely related to CHB 3. HTN 4. Chronic Pain Recommendations: - Keep on telemetry - OOB as tolerated. - MOnitor BP closely - Echocardiogram pending - Probable discharge tomorrow. Continue telemetry? Yes
--- NOTE | 2017-03-07 19:53 | ECHOCARDIOGRAM REPORT ---
JOSE EDUARDO ALONZO Age: 66 : 1950 Gender: M Exam Date: 03/07/2017 15:46 Exam Location: [address] Ht (in): 72 Wt (lb): 242 BSA: 2.39 BP: 110 / 70 Ordering Physician: ZANA HANSEN MD Referring Physician: Regina Gilbert MD Technologist: Ana Multani [facility] Room Number: [id number] Indications: ARRHYTHMIAS Rhythm: Other Technical Quality: Fair FINDINGS Left Ventricle Normal size left ventricle. [place] hypokinetic. Abnormal septal motion consistent with pacemaker activation. Normal left ventricular ejection fraction estimated at 55-60%. Right Ventricle Right ventricle not well visualized, grossly normal. Catheter/pacemaker wire in the right ventricular cavity. Right Atrium Normal right atrial size. Catheter/pacemaker wire in the right atrial cavity. Left Atrium Left atrial size at the upper limits of normal. Mitral Valve Mitral valve thickened. Sbwy-[id number] mitral regurgitation. Aortic Valve Trileaflet aortic valve. Diffuse thickening (sclerosis) of the aortic valve cusps without reduced excursion. No aortic stenosis. No aortic regurgitation. Tricuspid Valve Tricuspid valve not well visualized, grossly normal. Mild tricuspid regurgitation. Right ventricular systolic pressure estimated at 36 mmHg. Pulmonic Valve Pulmonic valve not well visualized, grossly normal. Pericardium No pericardial effusion. Great Vessels Mildly dilated proximal ascending aorta (tube). CONCLUSIONS 1. Mild aortic sclerosis is present with no valvular stenosis or insufficiency. Mild enlargement of the ascending aorta is present. 2. An ill defined echodensity is present just above the aortic valve in the right sinus of valsalva. I suspect that this is artifact, however, further evluation (NATASHA, etc) is suggested if clinically indicated. 3. Mitral leaflet thickening is present with mild to moderate mitral insufficiency and left atrial enlargement. 4. There is no significant pericardial fluid present 5. The left ventricular chamber size is normal. There is focal hypokinesia of the apex and abnormal septal motion related to the presence of a paced rhythm. The ejection fraction is nornal 6. Mild tricuspid insufficiency is present with no evidence of pulmonary hypertension. 7. Pacemaker wires are present in the right heart chambers. Regina Gilbert M.D. (Electronically Signed) Final Date: 07 March 2017 19:53 MEASUREMENTS (Male / Female) Normal Values 2D ECHO LV Diastolic Diameter PLAX 4.1 cm 4.2 - 5.9 / 3.9 - 5.3 cm LV Systolic Diameter PLAX 2.4 cm 2.1 - 4.0 cm LV Fractional Shortening PLAX 41.5 % 25 - 46 % LV Ejection Fraction 2D Teich 72.8 % IVS Diastolic Thickness 1.1 cm LVPW Diastolic Thickness 1.1 cm LV Relative Wall Thickness 0.5 RV Internal Dim ED PLAX 4.0 cm 1.9 - 3.8 cm LVOT Diameter 2.4 cm Aortic Root Diameter 3.7 cm LA Systolic Diameter LX 4.5 cm 3.0 - 4.0 / 2.7 - 3.8 cm LA Volume 37.0 cm 18 - 58 / 22 - 52 cm Ascending Aorta Diameter 4.0 cm DOPPLER AV Peak Velocity 148.0 cm/s AV Peak Gradient 8.8 mmHg AV Mean Velocity 109.0 cm/s AV Mean Gradient 5.0 mmHg AV Velocity Time Integral 33.5 cm LVOT Peak Velocity 116.0 cm/s LVOT Peak Gradient 5.4 mmHg LVOT Mean Velocity 81.6 cm/s LVOT Mean Gradient 3.0 mmHg LVOT Velocity Time Integral 25.2 cm LVOT Stroke Volume 114.0 cm AV Area Cont Eq vti 3.4 cm AV Area Cont Eq pk 3.5 cm MV Peak Velocity 142.0 cm/s MV Peak Gradient 8.1 mmHg MV Mean Velocity 64.9 cm/s MV Mean Gradient 2.0 mmHg Mitral E Point Velocity 67.6 cm/s Mitral A Point Velocity 97.2 cm/s Mitral E to A Ratio 0.7 MV PHT Velocity 89.5 cm/s MV Deceleration [place] 408.0 cm/s MV Pressure Half Time 65.8 ms MV Area PHT 3.3 cm MV Deceleration Time 290.0 ms TR Peak Velocity 272.0 cm/s TR Peak Gradient 29.6 mmHg Right Atrial Pressure 5.0 mmHg Pulmonary Artery Systolic Pressu 34.6 mmHg Right Ventricular Systolic Press 34.6 mmHg PV Peak Velocity 102.0 cm/s PV Peak Gradient 4.2 mmHg PV Mean Velocity 68.0 cm/s PV Mean Gradient 2.0 mmHg PV Velocity Time Integral 18.8 cm LV E' Lateral Velocity 6.2 cm/s Mitral E to LV E' Lateral Ratio 10.8 LV E' Septal Velocity 6.3 cm/s Mitral E to LV E' Septal Ratio 10.7
[2017-03-07 22:35] VITALS: BP 156/89
--- NOTE | 2017-03-08 07:27 | PN- Housestaff ---
Subjective Follow-up For: Complete heart block s/p pacemaker placement Tele-Events Since Last Visit: Single pacing HR 61-72 No overnight events Subjective: No acute events overnight. Patient seen and examined this morning. Pacemaker was successfully implanted yesterday without complications. Post-operatively, patient feels well and has no complaints. Review of Systems Constitutional: Reports: see HPI. Objective Last 24 Hrs of Vital Signs/I&O Vital Signs Date Time Temp Pulse Resp B/P Pulse O2 O2 Flow FiO2 Ox Delivery Rate 03/08 0801 98.1 67 16 168/98 94 Room Air 03/07 2235 98.0 65 18 156/89 95 Intake & Output 03/08 1600 03/08 0800 03/08 0000 Intake Total 250 540 Output Total Balance 250 540 Intake, IV 10 60 Intake, Oral 240 480 Physical Exam General Appearance: Alert, Oriented X3, No Acute Distress HEENT: Atraumatic, Mucous Membr. moist/pink Neck: Supple Cardiovascular: Regular Rate, Normal S1, Normal S2, No Hematoma at the Pacemaker Site Lungs: Clear to Auscultation Abdomen: Soft, No Tenderness, Positive Bowel Sounds Extremities: No Clubbing, No Cyanosis, No Edema Current Medications: Current Medications Sig/Kelsi Start time Last Medication Dose Route Stop Time Status Admin Acetaminophen 1,000 MG Q6P PRN 03/06 1700 DCD IV Acetaminophen/ 1 TAB Q6P PRN 03/07 1430 DCD 03/08 Hydrocodone Bitart PO 0943 Diclofenac Sodium 1 BORIS 4 TIMES/DAY PRN 03/06 1700 DCD TOP Melatonin 5 MG ONCE ONE 03/07 2345 DC 03/07 PO 03/07 2346 2337 Orders Radiology Findings: 1. No evidence of pneumothorax after placement of the cardiac pacemaker. 2. Pulmonary emphysema. Assessment/Plan Assessment: 66 y/o F with PMHx of HTN who presented with dizziness and found to have complete heart block, s/p pacemaker implantation. #Complete heart block: Pacing well s/p pacemaker implantation. * Discharge home today. * Patient instructed to follow with his PCP Dr. Ciro Mejía in [place] within one week of discharge who will provide him with a boat hoist operator helper referral. * Patient instructed to keep wound dry for 5 days. He can remove the Steri- Strips in one week if they have not already come off by then. * Prescription provided for 10-tab supply for [place] for post-operative pain on discharge. #Lung nodule: CT Chest with spiculated nodule at the apex of right lung measuring approximately 0.7 cm. * Needs to be followed with dedicated CT scan of the chest at 3 months especially given history of smoking and asbestos exposure. * Informed patient of this finding which was included in discharge instructions as well and emphasized the importance of following up with PCP. Diet: Heart Healthy DVT PPx: ALPs CODE: FULL Problem List: 1. Lung nodule 2. Complete heart block 3. S/P placement of cardiac pacemaker Pain Ratin Pain Location: N/A Pain Goal: Pain 4 or less Pain Plan: [place] 1 tab PO TID PRN Tomorrow's Labs & Rationales: None Discharge Plan Discharge Disposition: home Stable for Discharge? Yes Anticipated Discharge (Day): today
[2017-03-08 08:01] VITALS: BP 168/98
--- NOTE | 2017-03-08 10:22 | PN- Cardiology ---
Subjective Subjective: The patient has no complaints at this time. He is pacing well on the monitor. His chest x-ray and EKG looked good. He is afebrile. He is finished with his antibiotics. Objective Vital Signs and I&Os Vital Signs Date Time Temp Pulse Resp B/P Pulse O2 O2 Flow FiO2 Ox Delivery Rate 03/08 0801 98.1 67 16 168/98 94 Room Air 03/07 2235 98.0 65 18 156/89 95 03/07 1530 97.6 68 20 162/100 96 Room Air 03/07 1200 98.2 68 18 158/90 96 Room Air Intake & Output 03/08 1600 03/08 0800 03/08 0000 03/07 1600 03/07 0800 03/07 0000 Intake Total 250 540 120 Output Total 600 500 Balance 250 540 -600 -380 Intake, IV 10 60 Intake, Oral 240 480 120 Output, Urine 600 500 Patient 242 lb Weight Physical Exam: He is in no distress Chest is clear Heart is regular. Pacemaker site looks good. Dressing is removed. There is no hematoma. Current Medications: Current Medications Sig/Kelsi Start time Last Medication Dose Route Stop Time Status Admin Acetaminophen 1,000 MG Q6P PRN 03/06 1700 AC IV Acetaminophen/ 1 TAB Q6P PRN 03/07 1430 AC 03/08 Hydrocodone Bitart PO 0943 Cefazolin Sodium 2 GM ONCE ONE 03/07 2000 CAN N/A 1 UNIT IV 03/07 2029 Cefazolin Sodium 2 GM Q6H 03/07 1400 DC 03/07 N/A 1 UNIT IV 03/07 2029 1945 Diclofenac Sodium 1 BORIS 4 TIMES/DAY PRN 03/06 1700 AC TOP Melatonin 5 MG ONCE ONE 03/07 2345 DC 03/07 PO 03/07 2346 2337 Morphine Sulfate 1 MG Q8P PRN 03/06 1715 DC 03/07 IV 1242 Results Last 48 Hrs of Labs/Mics: Laboratory Tests 03/07/17 0430: Anion Gap 11, Estimated GFR > 60, Glucose 104 H, Calcium 9.2, Phosphorus 3.0, Magnesium 1.8, Total Bilirubin 0.8, AST 39, ALT 64, Albumin 4.1 03/06/17 1657: Troponin I 0.03 03/06/17 1037: Anion Gap 10, Estimated GFR > 60, BUN/Creatinine Ratio 25.5 H, Glucose 114 H, Calcium 9.7, Magnesium 1.7, Total Bilirubin 0.7, AST 29, ALT 51, Alkaline Phosphatase 54, Troponin I 0.03, Total Protein 6.3, Albumin 4.2, Globulin 2.1, Albumin/Globulin Ratio 2.0, Free T4 1.18, Total T3 1.43, TSH &T3 &Free T4 Intrp 4.350 H, CBC w Diff NO MAN DIFF REQ, RBC 5.17, MCV 84.0, MCH 28.6, RDW 12.7, MPV 8.5, Gran % 67.3, Lymphocytes % 22.8, Monocytes % 8.4, Eosinophils % 1.0, Basophils % 0.5, Absolute Granulocytes 6.7 H, Absolute Lymphocytes 2.3, Absolute Monocytes 0.8 H, Absolute Eosinophils 0.1, Absolute Basophils 0, PUBS MCHC 34.1 03/06/17 1033: Lyme Disease Antibody Pending Microbiology 03/06 2230 UPPER RESP: Surveillance Culture - COMP Recent Imaging Studies: CONCLUSIONS 1. Mild aortic sclerosis is present with no valvular stenosis or insufficiency. Mild enlargement of the ascending aorta is present. 2. An ill defined echodensity is present just above the aortic valve in the right sinus of valsalva. I suspect that this is artifact, however, further evluation (NATASHA, etc) is suggested if clinically indicated. 3. Mitral leaflet thickening is present with mild to moderate mitral insufficiency and left atrial enlargement. 4. There is no significant pericardial fluid present 5. The left ventricular chamber size is normal. There is focal hypokinesia of the apex and abnormal septal motion related to the presence of a paced rhythm. The ejection fraction is nornal 6. Mild tricuspid insufficiency is present with no evidence of pulmonary hypertension. 7. Pacemaker wires are present in the right heart chambers. Regina Gilbert M.D. (Electronically Signed) Final Date: 07 March 2017 19:53 Assessment/Plan Assessment/Plan The patient is stable status post pacemaker implantation yesterday. There were no complications and the pacemaker site looks good and he is pacing well. From a pacemaker standpoint he can be discharged. He is to keep the wound dry for 5 days and then may shower. He may remove the Steri-Strips in one week if they have not come off by then. He will follow-up in [place] with his primary physician and I have given him a list of pacemaker cardiologists in the [place] area that he can pick with his physician. Continue telemetry? No
--- NOTE | 2017-03-08 11:21 | Patient Discharge Instructions ---
Discharge Instructions General Discharge Information You were seen/treated for: Complete heart block You had these procedures: Pacemaker implantation (03/07/17) Watch for these problems: Pain around your pacemaker Redness, swelling and drainage around your stitches Fever or chills Heart beating very slowly or fast Weakness or dizziness Special Instructions: Please follow up with your primary care physician and chestnut tanner within one week of discharge. Keep the wound dry for 5 days. You can remove the Steri-Strips in one week if they have not come off by then. You have a nodule in your right lung measuring about 7 mm. Please follow up with your primary care physician regarding this finding. You will need a repeat CT scan to evaluate the stability of the nodule. Diet Recommended Diet: Heart Healthy Activity Full Activity/No Limits: Yes Acute Coronary Syndrome Inclusion Criteria At DC or during hospital stay patient has or had the following: ACS DIAGNOSIS No Discharge Core Measures Meds if any: Prescribed or Continued at Discharge Meds if any: NOT Prescribed or Continued at Discharge Congestive Heart Failure Inclusion Criteria At DC or during hospital stay patient has or had the following: CHF DIAGNOSIS No Discharge Core Measures Meds if any: Prescribed or Continued at Discharge Meds if any: NOT Prescribed or Continued at Discharge Cerebrovascular accident Inclusion Criteria At DC or during hospital stay patient has or had the following: CVA/TIA Diagnosis No Discharge Core Measures Meds if any: Prescribed or Continued at Discharge Meds if any: NOT Prescribed or Continued at Discharge Venous thromboembolism Inclusion Criteria VTE Diagnosis No VTE Type NONE VTE Confirmed by (Test) NONE Discharge Core Measures - Per Current guidelines, there needs to be overlap - treatment for the first 5 days of Warfarin therapy. - If discharged on Warfarin prior to 5 days of - overlap therapy, the patient will need to be - assessed for post discharge needs including - *Post discharge parental anticoagulation - *Warfarin and/or parental anticoagulation education - *Follow up date to check INR post discharge At least 5 days overlap therapy as Inpatient No Meds if any: Prescribed or Continued at Discharge Note: Overlap Therapy is Warfarin and Anticoagulant Meds if any: NOT Prescribed or Continued at Discharge
[2017-03-08] MEDS ORDERED: HYDROCODON-ACE1 EAC3 PO (11:33)
--- NOTE | 2017-03-08 13:42 | Discharge Summary ---
Visit Information Visit Dates Admission Date: 03/06/17 Discharge Date: 03/08/17 Hospital Course Course Attending Physician: Marcie ZHONG MD Primary Care Physician: Ciro Mejía MD Consulting Request: Consulting Specialty: Cardiology Consulting Physician: Anuj Zhong MD Reason for Consult: Dyspnea with complete heart block Hospital Course: Mr. Reich is a 66 y/o M with PMHx of HTN who presented with lightheadedness, bradycardia and episodes of waking up at night gasping for air. Of note, approximately one year prior to current admission patient had been found to have an abnormal EKG during a routine physical exam which sounded like a right bundle branch block from his description. In the ED, patient was noted to be in complete heart block with a ventricular rate in the low 30s. CTA Chest was performed which was negative for pulmonary embolism. Patient was subsequently admitted for further evaluation and management of complete heart block. Below are the issues that were addressed during current admission: #Complete heart block: Continuous cardiac monitoring revealed alternating bundle type ventricular escape rhythm. Complete heart block was felt to be secondary to underlying degenerative conduction disease and not related to his medications. Patient's prior to admission medications terazosin and niacin were held. Thyroid function tests were checked and revealed mild elevation in TSH (4.350), but free T4 and total T3 were within normal limits. Lyme titers were ordered but were still pending at the time of discharge. Patient was recommended a permanent pacemaker which was successfully placed on day 2 of current hospitalization. There were no complications and patient tolerated the procedure well. ECHO was performed after pacemaker placement which showed normal LVEF estimated at 55-60% . * Patient was instructed to follow up with his PCP Ciro Mejía MD in [place] within one week of discharge, who will give him a referral to see a commercial glazier in the area. * Patient was provided prescription for 10-tab supply of Hydrocodone/ Acetaminophen 7.5 mg/325 mg on discharge for post-operative pain. #Lung nodule: CTA Chest revealed an incidental spiculated lung nodule located at the apex of the right lung measuring approximately 0.7 cm. This will need close monitoring especially given patient's history of smoking in the past and asbestos exposure. * Patient was instructed to follow up with his PCP and will need a dedicated CT scan of the chest at 3 months to evaluate the stability of this finding based on Fleischner Society recommendations. Allergies: Coded Allergies: No Known Allergies (03/06/17) Significant Procedures: Operative/Inv Procedure Report Surgery Date: 03/07/17 Name of Procedure: Implantation of MRI conditional dual-chamber pacemaker and atrial and ventricular leads. Pre-Operative Diagnosis: Complete heart block Post-Operative Diagnosis: Complete heart block, status post pacemaker implantation. Estimated Blood Loss: scant Surgeon/Process Mold Technician: Emanuel Tan M.D., V. Anesthesia: local monitored anesthesi Implants: Medtronic Advisa pacemaker, model #A2DR01, serial number [id number] Medtronic right atrial lead, model #5076-45, serial number [id number] Medtronic right ventricular lead Model#5076-52, serial number [id number] Complications: None Operative/Procedure Note Note: The patient is a 66-year-old man who is visiting family from [facility]. He had some episodes of dizziness on the day prior to admission and came to the emergency department yesterday on March 06, 2017. There he was found to be in complete heart block with a ventricular rate of about 30-32. There is some history consistent with a pre-existing bundle-branch block, but this was unable to be confirmed. The patient was recommended a permanent pacemaker. He agreed after confirming that his insurance would cover this procedure on an emergency basis. The patient was brought to the operating suite in the fasting state. Informed consent was obtained for the procedure and anesthesia. The patient and his family were advised as to indications, procedure, and possible complications. The patient was prepped and draped in the usual manner. 2 g of Kefzol IV were given prior to the procedure. produce specialist out was taken and all were in agreement with the procedure, personnel, equipment and patient identification. Local anesthesia was instilled in the right subclavian area and an incision made in this area parallel to the clavicle, crossing the deltopectoral groove. An incision was made and carried down to the deltopectoral groove and a somewhat deep but good sized cephalic vein was identified and isolated between ties. Additional local anesthesia was instilled in the inferior part of the incision and an appropriate sized pocket made using sharp and blunt dissection and the pocket was stuffed with a Kefzol-soaked sponge. Next, the vein was opened and the ventricular lead was placed in the vein and was able to be passed into the central circulation and into the apex of the right ventricle under fluoroscopic control. The lead was was screwed into place using the active fixation feature of the lead. Threshold was 0.6 V, 0.5 mA. Impedance was 1136 ohms, R-wave was 6.7 mV, this were considered satisfactory for an acute implant. Next the atrial lead was able to be placed in the vein and advanced to central circulation. The lead was manipulated into the right atrial appendage and screwed into place using the active fixation feature. Threshold in the atrium was 1.0 V, current 2.2 mA, impedance 719 ohms, P waves 2.0 mV. These were considered satisfactory for an acute implant. Next the leads were tied into the vein and sewn into place using the sleeve devices around the leads with nonabsorbable suture material. Next the sponge was removed from the pocket and the pacemaker was attached to the leads, where appropriate pacing ensued. Next the pacemaker was placed in the pocket and sewn into place using a nonabsorbable suture through the suture hole of the pacemaker. Next, the wound was inspected for hemostasis and found to be dry, and the wound was closed in 3 layers of absorbable suture material including a final layer of subcuticular sutures with buried knots. The patient tolerated the procedure well. There was negligible blood loss and no complications. Sponge, needle and instrument counts were correct at the end of the procedure. Postoperative EKG and chest x-ray documented good electrical and anatomic position and function of the system. The patient was moved to the recovery room awake and alert and pacing well. Disposition Summary Disposition Principal Diagnosis: Complete heart block Additional Diagnosis: Lung nodule Discharge Disposition: home or self care Discharge Instructions General Discharge Information Code Status: Full Code Patient's Diet: Heart Healthy Patient's Activity: Full Activity/No Limits Follow-Up Instructions/Appts: Please follow up with your primary care physician and commercial glazier within one week of discharge. Keep the wound dry for 5 days. You can remove the Steri-Strips in one week if they have not come off by then. You have a nodule in your right lung measuring about 7 mm. Please follow up with your primary care physician regarding this finding. You will need a repeat CT scan to evaluate the stability of the nodule. Medications at Discharge Discharge Medications: Continue taking these medications: Hydrocodone/Acetaminophen (Hydrocodon-Acetaminoph 7.5-325) 7.5 MG-325 MG TABLET 1 Tablet ORAL THREE TIMES A DAY NEEDED Qty = 10 This prescription has been renewed Copies To: Ciro Mejía MD
== END 2017-03-08 12:45 | DRG 171 ==
LOC: ENRESERVDT → ENRESERVTM → ERH 10:13 → 1NO 14:39 → ENPENDDIS 14:39 → CRI 14:39 → ERHI 14:39 → CRI 20:06 → 1NO 03-07 12:03
PROVIDERS: Emergency Medicine; ADMIT Specialist
PROC: 0JH606Z Insertion of Pacemaker, Dual Chamber into Chest Subcutaneous Tissue and Fascia, Open Approach (ICD-10-PCS; principal; 2017-03-07)
PROC: 02HK3JZ Insertion of Pacemaker Lead into Right Ventricle, Percutaneous Approach (ICD-10-PCS; principal; 2017-03-07)
PROC: 02H63JZ Insertion of Pacemaker Lead into Right Atrium, Percutaneous Approach (ICD-10-PCS; principal; 2017-03-07)
DX: I44.2 Atrioventricular block, complete (principal); I10 Essential (primary) hypertension; M54.5 Low back pain; Z87.891 Personal history of nicotine dependence; R91.1 Solitary pulmonary nodule; M54.16 Radiculopathy, lumbar region
CPT/HCPCS: 1NP; 86618; CCU; 36415; 82436; 87070; 93005; 93010; 93306; 96374; 99291; C1785; C1898; J0131; J0461; J0690